=== PATIENT | female | born 1995 | race African-American/Black ===

== ENCOUNTER 2020-06-14 13:35 | Inpatient (IN) ==
[2020-06-14 14:20] LABS: Hematocrit 24.6 VOL% (35.7-47.0); Hemoglobin 7.8 GM/DL (12.0-16.0); Immature Granulocytes % 1.1 %; Immature Granulocytes Absolute 0.09 #; Lymphocytes # 0.5 10*3/uL (1.4-4.0); Lymphocytes % 6.4 % (21.3-54.2); Mean Corpuscular HGB Conc 31.7 GM/DL (32-36); Mean Corpuscular Volume 97.2 FL (87-102); Mean Platelet Volume 10.7 FL (9.6-12.0); Monocytes % 5.2 % (1.7-12.7); Neutrophils % 87.3 % (38.7-73.9); Platelet Count 113 T/CUMM (130-400); Red Blood Count 2.53 MC/CUMM (3.8-5.5); Red Cell Distribution Width 14.8 % (9.3-17.3); White Blood Count 7.9 T/CUMM (4-12)
[2020-06-14 14:33] LABS: Calcium 6.6 MG/DL (8.5-10.1); Potassium 5.5 MMOL/L (3.5-5.1)
[2020-06-14] MEDS ORDERED: SODIUM CHLORIDE 0.9% 1,000 ML IV PRN (15:09)
[2020-06-14] MEDS ORDERED: DEXTROSE 50% 25 GM/50 ML VIAL IV PRN (15:12)
[2020-06-14] MEDS ORDERED: GLUCAGON 1 MG VIAL IM PRN (15:12)
[2020-06-14] MEDS ORDERED: PROMETHAZINE 25 MG TABLET PO PRN (16:24)
[2020-06-14] MEDS: SODIUM CHLORIDE 0.9% 1,000 ML IV SCH ×2 (18:40→23:30)
[2020-06-14] MEDS: ENOXAPARIN 30 MG/0.3 ML SYRINGE SUBCUT SCH (20:11)
[2020-06-14] MEDS: ACETAMINOPHEN 325 MG TABLET PO PRN (21:12)
[2020-06-15 02:19] LABS: Basophils % 0.1 % (0.0-0.8); Hematocrit 30.3 VOL% (35.7-47.0); Immature Granulocytes % 1.4 %; Immature Granulocytes Absolute 0.15 #; Lymphocytes # 0.6 10*3/uL (1.4-4.0); Lymphocytes % 5.5 % (21.3-54.2); Mean Corpuscular HGB Conc 32.3 GM/DL (32-36); Mean Corpuscular Volume 94.1 FL (87-102); Mean Platelet Volume 10.5 FL (9.6-12.0); Monocytes % 5.6 % (1.7-12.7); Neutrophils % 87.4 % (38.7-73.9); Platelet Count 83 T/CUMM (130-400); Red Blood Count 3.22 MC/CUMM (3.8-5.5); Red Cell Distribution Width 14.4 % (9.3-17.3)
[2020-06-15 02:43] LABS: Hemoglobin 9.8 GM/DL (12.0-16.0)
[2020-06-15 02:48] LABS: Albumin 2.5 G/DL (3.4-5.0); Bilirubin,Total 0.4 MG/DL (0.2-1.0); Calcium 6.3 MG/DL (8.5-10.1); Osmolality,Calculated 289.2 MOS/KG (273-304); Potassium 5.8 MMOL/L (3.5-5.1)
[2020-06-15] MEDS: ACETAMINOPHEN 325 MG TABLET PO PRN (04:07)
[2020-06-15] MEDS ORDERED: MAGNESIUM SULF RIDER 4 GM/100 ML PREMIX IV PRN (07:44)
[2020-06-15] MEDS ORDERED: MAGNESIUM SULF RIDER 2 GM/50 ML PREMIX IV PRN (07:44)
[2020-06-15] MEDS: SODIUM CHLORIDE 0.9% 1,000 ML IV SCH (07:57)
[2020-06-15] MEDS: HYDROXYCHLOROQUINE 200 MG TABLET PO SCH (08:29)
[2020-06-15] MEDS: PANTOPRAZOLE 40 MG TABLET PO SCH (08:29)
[2020-06-15] MEDS ORDERED: predniSONE 10 MG TABLET PO SCH (09:00)
[2020-06-15 11:49] LABS: Hepatitis B Core IgM Quant 0.14 Index; Hepatitis B Surface Ag Quant < 0.10 Index; Hepatitis B Surface Ag Result Non-Reactive (NonReactive); Hepatitis C Virus Ab Result Non-Reactive (NonReactive)
[2020-06-15] MEDS: SODIUM ZIRCONIUM CYCLOSILICATE 10 GM PACK PO SCH (12:06)
[2020-06-15] MEDS: SODIUM BICARB INJ 50 MEQ in SODIUM CHLORIDE 0.45% 1,000 ML IV SCH ×2 (12:36→21:45)
[2020-06-15] MEDS ORDERED: methylPREDNISolone SOD SUC INJ 1,000 MG in SODIUM CHLORIDE 0.9% 100 ML IV ONE (13:00)
[2020-06-15 13:01] LABS: Amorphous Crystals,Urine Occasional /HPF (Few); Bacteria,Urine Occasional /HPF (Few); Bilirubin,Urine Negative (Negative); Blood, Urine Moderate mg/dL (Negative); Glucose,Urine (UA) 50 mg/dL (Negative); Ketones,Urine Negative (Negative); Mucus,Urine Occasional /LPF (Occasional); Nitrite,Urine Negative (Negative); Protein,Urine >=500 MG/DL; RBC,Urine 10 /HPF (0-4); Squamous Epithelial Cell,Urine Occasional /HPF (0-10); Urine Appearance CLEAR (Clear); Urine Color Yellow (Yellow); Urine Specific Gravity 1.011 (1.001-1.035); Urine Urobilinogen < 2.0 EU/DL (0.2-1.0)
[2020-06-15] MEDS: ENOXAPARIN 30 MG/0.3 ML SYRINGE SUBCUT SCH (21:25)
[2020-06-16] MEDS: SODIUM BICARB INJ 50 MEQ in SODIUM CHLORIDE 0.45% 1,000 ML IV SCH ×2 (07:11→18:19)
[2020-06-16 07:36] LABS: Basophils % 0.1 % (0.0-0.8); Hematocrit 29.5 VOL% (35.7-47.0); Hemoglobin 9.6 GM/DL (12.0-16.0); Immature Granulocytes % 1.1 %; Lymphocytes # 0.4 10*3/uL (1.4-4.0); Lymphocytes % 4.6 % (21.3-54.2); Mean Corpuscular HGB Conc 32.5 GM/DL (32-36); Mean Corpuscular Volume 92.8 FL (87-102); Mean Platelet Volume 10.3 FL (9.6-12.0); Monocytes % 1.3 % (1.7-12.7); Neutrophils % 92.9 % (38.7-73.9); Platelet Count 110 T/CUMM (130-400); Red Blood Count 3.18 MC/CUMM (3.8-5.5); Red Cell Distribution Width 14.5 % (9.3-17.3)
[2020-06-16 07:56] LABS: Band Neutrophils 10 % (0-10); Lymphocytes 4 % (20-55); Segmented Neutrophils 83 % (50-85); Total Cells Counted 100
[2020-06-16 07:57] LABS: Anisocytosis 1+; Burr Cells 1+; Macrocytosis Slight; Platelet Estimate Adequate; Tear Drop Cells Few
[2020-06-16 08:02] LABS: Alanine Aminotransferase < 9 U/L (13-56); Albumin 2.1 G/DL (3.4-5.0); Alkaline Phosphatase 63 U/L (45-117); Aspartate Amino Transferase 9 U/L (0-37); Bilirubin,Total < 0.39 MG/DL (0.2-1.0); Blood Urea Nitrogen 89 MG/DL (7-18); Calcium 6.6 MG/DL (8.5-10.1); Carbon Dioxide 14 MMOL/L (21-32); Estimated Glom Filtration Rate 5 ML/MIN; Glucose 113 MG/DL (74-106); Osmolality,Calculated 297.1 MOS/KG (273-304); Potassium 5.6 MMOL/L (3.5-5.1); Sodium 135 MMOL/L (136-145); Total Protein 5.8 G/DL (6.4-8.2)
[2020-06-16] MEDS: HYDROXYCHLOROQUINE 200 MG TABLET PO SCH (09:56)
[2020-06-16] MEDS: PANTOPRAZOLE 40 MG TABLET PO SCH (09:57)
[2020-06-16] MEDS: SODIUM ZIRCONIUM CYCLOSILICATE 10 GM PACK PO SCH (09:57)
[2020-06-16] MEDS: cefTRIAXone 1,000 MG in SODIUM CHLORIDE 0.9% 100 ML IV SCH (16:59)
[2020-06-17] MEDS ORDERED: LIDOCAINE 1%/EPI INJ 20 ML VIAL ONE (06:25)
[2020-06-17] MEDS ORDERED: HEPARIN 5,000 UNIT/1 ML VIAL ONE (06:25)
[2020-06-17] MEDS ORDERED: BUPIVACAINE MPF 0.25% 30 ML VIAL ONE (06:25)
[2020-06-17] MEDS ORDERED: fentaNYL 100 MCG/2 ML VIAL ONE (06:38)
[2020-06-17] MEDS ORDERED: propofoL 200 MG/20 ML VIAL IV ONE ×2 (06:38→07:26)
[2020-06-17] MEDS ORDERED: MIDAZOLAM 2 MG/2 ML VIAL ONE (06:38)
[2020-06-17] MEDS ORDERED: LIDOCAINE 2% 5 ML VIAL ONE (06:38)
[2020-06-17 06:45] LABS: Basophils % 0.1 % (0.0-0.8); Hematocrit 26.3 VOL% (35.7-47.0); Hemoglobin 8.9 GM/DL (12.0-16.0); Immature Granulocytes % 1.1 %; Immature Granulocytes Absolute 0.15 #; Lymphocytes # 0.3 10*3/uL (1.4-4.0); Lymphocytes % 1.9 % (21.3-54.2); Mean Corpuscular HGB Conc 33.8 GM/DL (32-36); Mean Corpuscular Volume 88.9 FL (87-102); Mean Platelet Volume 10.5 FL (9.6-12.0); Monocytes % 2.1 % (1.7-12.7); Neutrophils % 94.8 % (38.7-73.9); Platelet Count 104 T/CUMM (130-400); Red Blood Count 2.96 MC/CUMM (3.8-5.5); Red Cell Distribution Width 14.5 % (9.3-17.3); White Blood Count 13.6 T/CUMM (4-12)
[2020-06-17 07:07] LABS: Hypochromasia Slight; Lymphocytes 3 % (20-55); Platelet Estimate Adequate; Segmented Neutrophils 96 % (50-85); Total Cells Counted 100
[2020-06-17 07:26] LABS: Alanine Aminotransferase < 9 U/L (13-56); Albumin 2.1 G/DL (3.4-5.0); Alkaline Phosphatase 56 U/L (45-117); Aspartate Amino Transferase 8 U/L (0-37); Bilirubin,Total < 0.39 MG/DL (0.2-1.0); Blood Urea Nitrogen 104 MG/DL (7-18); Carbon Dioxide 14 MMOL/L (21-32); Estimated Glom Filtration Rate 5 ML/MIN; Glucose 103 MG/DL (74-106); Osmolality,Calculated 302.1 MOS/KG (273-304); Sodium 135 MMOL/L (136-145); Total Protein 5.5 G/DL (6.4-8.2)
[2020-06-17 07:42] LABS: Calcium 5.2 MG/DL (8.5-10.1)
[2020-06-17] MEDS ORDERED: HEPARIN 10,000 UNIT/10 ML VIAL IV SCH (11:45)
[2020-06-17] MEDS: PANTOPRAZOLE 40 MG TABLET PO SCH (12:52)
[2020-06-17] MEDS: HYDROXYCHLOROQUINE 200 MG TABLET PO SCH (12:52)
[2020-06-17] MEDS: SODIUM BICARB INJ 50 MEQ in SODIUM CHLORIDE 0.45% 1,000 ML IV SCH (12:52)
[2020-06-17] MEDS: SODIUM ZIRCONIUM CYCLOSILICATE 10 GM PACK PO SCH (12:57)
[2020-06-17] MEDS: HYDROmorphone 2 MG/1 ML VIAL IV PRN ×2 (16:51→20:04)
[2020-06-17] MEDS: cefTRIAXone 1,000 MG in SODIUM CHLORIDE 0.9% 100 ML IV SCH (17:04)
[2020-06-17] MEDS: CALCIUM GLUCONATE 2,000 MG in SODIUM CHLORIDE 0.9% 100 ML IV PRN (17:59)
[2020-06-17] MEDS: CALCIUM (CARBONATE) 500 MG TABLET PO SCH (20:01)
[2020-06-18] MEDS: HYDROmorphone 2 MG/1 ML VIAL IV PRN ×2 (00:30→20:44)
[2020-06-18 05:27] LABS: Hematocrit 26.2 VOL% (35.7-47.0); Hemoglobin 8.9 GM/DL (12.0-16.0); Immature Granulocytes % 1.3 %; Immature Granulocytes Absolute 0.11 #; Lymphocytes # 0.4 10*3/uL (1.4-4.0); Lymphocytes % 4.6 % (21.3-54.2); Mean Platelet Volume 10.6 FL (9.6-12.0); Monocytes % 3.1 % (1.7-12.7); Red Blood Count 2.91 MC/CUMM (3.8-5.5); Red Cell Distribution Width 14.6 % (9.3-17.3)
[2020-06-18 05:48] LABS: Parathyroid Hormone Intact 941.7 PG/ML (18.4-80.1)
[2020-06-18 05:51] LABS: Calcium 5.9 MG/DL (8.5-10.1); Osmolality,Calculated 290.2 MOS/KG (273-304); Potassium 4.3 MMOL/L (3.5-5.1)
[2020-06-18 05:53] LABS: Platelet Count 98 T/CUMM (130-400); White Blood Count 8.7 T/CUMM (4-12)
[2020-06-18 05:59] LABS: Hypochromasia 1+; Lymphocytes 5 % (20-55); Microcytosis 1+; Nucleated Red Blood Cells 1 (0-5); Ovalocytes Slight; Platelet Estimate Decreased; Segmented Neutrophils 94 % (50-85); Total Cells Counted 100
[2020-06-18 06:37] LABS: Alanine Aminotransferase < 6 U/L (13-56); Alkaline Phosphatase 51 U/L (45-117); Aspartate Amino Transferase 10 U/L (0-37); Bilirubin,Total < 0.39 MG/DL (0.2-1.0); Blood Urea Nitrogen 79 MG/DL (7-18); Calcium 5.9 MG/DL (8.5-10.1); Carbon Dioxide 20 MMOL/L (21-32); Estimated Glom Filtration Rate 7 ML/MIN; Glucose 78 MG/DL (74-106); Potassium 4.3 MMOL/L (3.5-5.1); Sodium 136 MMOL/L (136-145); Total Protein 4.9 G/DL (6.4-8.2)
[2020-06-18] MEDS: CALCIUM (CARBONATE) 500 MG TABLET PO SCH ×2 (08:37→20:37)
[2020-06-18] MEDS: SODIUM ZIRCONIUM CYCLOSILICATE 10 GM PACK PO SCH (08:37)
[2020-06-18] MEDS: PANTOPRAZOLE 40 MG TABLET PO SCH (08:38)
[2020-06-18] MEDS: HYDROXYCHLOROQUINE 200 MG TABLET PO SCH (08:38)
[2020-06-18] MEDS: MAGNESIUM CHLORIDE 64 MG TABLET PO SCH (08:38)
[2020-06-18] MEDS: CALCIUM GLUCONATE 2,000 MG in SODIUM CHLORIDE 0.9% 100 ML IV PRN (09:15)
[2020-06-18] MEDS: calcitrioL 0.25 MCG CAPSULE PO SCH (10:58)
[2020-06-18] MEDS: cefTRIAXone 1,000 MG in SODIUM CHLORIDE 0.9% 100 ML IV SCH (18:03)
[2020-06-18] MEDS: SERTRALINE 25 MG TABLET PO SCH (20:37)
[2020-06-19 06:35] LABS: Basophils % 0.3 % (0.0-0.8); Eosinophils % 0.3 % (0.00-10.9); Hematocrit 28.3 VOL% (35.7-47.0); Hemoglobin 9.6 GM/DL (12.0-16.0); Immature Granulocytes % 1.5 %; Lymphocytes # 0.5 10*3/uL (1.4-4.0); Lymphocytes % 6.9 % (21.3-54.2); Mean Corpuscular HGB Conc 33.9 GM/DL (32-36); Mean Corpuscular Volume 90.1 FL (87-102); Mean Platelet Volume 11.3 FL (9.6-12.0); Monocytes % 5.1 % (1.7-12.7); Neutrophils % 85.9 % (38.7-73.9); Platelet Count 89 T/CUMM (130-400); Red Blood Count 3.14 MC/CUMM (3.8-5.5); Red Cell Distribution Width 14.2 % (9.3-17.3); White Blood Count 6.7 T/CUMM (4-12)
[2020-06-19 06:57] LABS: Calcium 6.4 MG/DL (8.5-10.1); Hypochromasia 1+; Microcytosis 1+; Osmolality,Calculated 304.4 MOS/KG (273-304); Platelet Estimate Decreased; Potassium 4.2 MMOL/L (3.5-5.1)
[2020-06-19] MEDS: MAGNESIUM CHLORIDE 64 MG TABLET PO SCH (09:12)
[2020-06-19] MEDS: PANTOPRAZOLE 40 MG TABLET PO SCH (09:12)
[2020-06-19] MEDS: CALCIUM (CARBONATE) 500 MG TABLET PO SCH ×2 (09:12→20:18)
[2020-06-19] MEDS: calcitrioL 0.25 MCG CAPSULE PO SCH (09:13)
[2020-06-19] MEDS: HYDROXYCHLOROQUINE 200 MG TABLET PO SCH (09:13)
[2020-06-19] MEDS: HEPARIN 5,000 UNIT/1 ML VIAL SUBCUT SCH ×2 (13:16→23:49)
[2020-06-19] MEDS: SERTRALINE 25 MG TABLET PO SCH (20:17)
[2020-06-20 05:29] LABS: Basophils % 0.3 % (0.0-0.8); Eosinophils # 0.1 10*3/uL (0.0-0.87); Hematocrit 26.4 VOL% (35.7-47.0); Hemoglobin 9.2 GM/DL (12.0-16.0); Immature Granulocytes % 1.8 %; Immature Granulocytes Absolute 0.11 #; Lymphocytes # 0.5 10*3/uL (1.4-4.0); Lymphocytes % 7.9 % (21.3-54.2); Mean Corpuscular HGB Conc 34.8 GM/DL (32-36); Mean Corpuscular Volume 88.3 FL (87-102); Mean Platelet Volume 10.1 FL (9.6-12.0); Monocytes % 3.9 % (1.7-12.7); Neutrophils % 85.1 % (38.7-73.9); Red Blood Count 2.99 MC/CUMM (3.8-5.5)
[2020-06-20 05:34] LABS: Platelet Count 94 T/CUMM (130-400)
[2020-06-20 05:49] LABS: Hypochromasia 1+; Microcytosis 1+; Platelet Estimate Decreased
[2020-06-20 06:00] LABS: Calcium 7.4 MG/DL (8.5-10.1); Osmolality,Calculated 287.5 MOS/KG (273-304); Potassium 3.9 MMOL/L (3.5-5.1)
[2020-06-20] MEDS: PANTOPRAZOLE 40 MG TABLET PO SCH (08:54)
[2020-06-20] MEDS: CALCIUM (CARBONATE) 500 MG TABLET PO SCH (08:54)
[2020-06-20] MEDS: calcitrioL 0.25 MCG CAPSULE PO SCH (08:54)
[2020-06-20 09:09] VITALS: BP 146/98
[2020-06-20] MEDS ORDERED: MYCOPHENOLATE MOFETIL 250 MG CAPSULE PO SCH (10:00)
[2020-06-20] MEDS ORDERED: hydrALAZINE 20 MG/1 ML VIAL IV PRN (12:41)
[2020-06-20] MEDS: HYDROXYCHLOROQUINE 200 MG TABLET PO SCH (13:52)
[2020-06-20] MEDS: HEPARIN 5,000 UNIT/1 ML VIAL SUBCUT SCH (14:01)
[2020-06-21 12:30] LABS: Anti-Nuclear Antibody Pattern Speckled
== END 2020-06-20 14:03 | disposition home or self-care (01) | DRG 469 ==
LOC: N.ED 13:35 → SUATTDRO 15:54 → N.EDINP 15:54 → N.5E 17:12
PROVIDERS: ADMIT Internal Medicine; ATTEND Internal Medicine